=== PATIENT | male | born 1940 | race Caucasian/White ===

== ENCOUNTER → 2016-07-14 | Outpatient (CLI) | payer MEDICARE | END | disposition home or self-care (01) | LOC: PCVCIMAG 12:39 | PROVIDERS: ATTEND Internal Medicine Cardiovascular Disease | DX: I65.23 Occlusion and stenosis of bilateral carotid arteries (principal); I10 Essential (primary) hypertension; I25.10 Atherosclerotic heart disease of native coronary artery without angina pectoris; E78.00 Pure hypercholesterolemia, unspecified; Z95.5 Presence of coronary angioplasty implant and graft | CPT/HCPCS: 93325; 93351; 93880 ==

== ENCOUNTER → 2017-08-05 | Outpatient (CLI) | payer MEDICARE | END | disposition home or self-care (01) | LOC: PCVCIMAG 10:39 | DX: I25.10 Atherosclerotic heart disease of native coronary artery without angina pectoris (principal); I10 Essential (primary) hypertension; E78.00 Pure hypercholesterolemia, unspecified; I77.9 Disorder of arteries and arterioles, unspecified; I65.23 Occlusion and stenosis of bilateral carotid arteries; Z79.899 Other long term (current) drug therapy; Z79.82 Long term (current) use of aspirin | CPT/HCPCS: 80061; 93005; 93880; G0463 ==

== ENCOUNTER → 2017-12-20 | Outpatient (CLI) | payer MEDICARE ==
--- NOTE | 2017-12-20 13:50 | PCVCIMAG ---
APPROVED REPORT Study performed: 12/20/2017 12:58:02 Exam: Stress Echocardiogram Indication: CAD, Hypertension, hyperlipidemia Patient Location: Echo lab Stress Nurse: Alesia Mohr RN Status: routine Ht: 5 ft 10 in HR: 65 bpm BP: 130/80 mmHg Rhythm: NSR Medical History Medical History: CAD s/p stent Procedure The patient underwent an Exercise Stress Test using the Franky Protocol. Blood pressure, heart rate, and EKG were monitored. An Echocardiogram was performed by process control technician in four stages in quad fashion. At peak stress, four selected images were obtained and placed side by side with resting images for comparison. Stress Test Details Stress Test: Exercise stress testing was performed using a Franky protocol. HR Resting HR: 65 bpmMax Heart Rate (APMHR): 143 bpm Max HR Achieved: 129 bpmTarget HR (85% APMHR): 121 bpm % of APMHR: 90 HR response to stress: Normal HR response to stress BP Resting BP: 130/80 mmHg Max BP: 200/80 mmHg ECG Resting ECG: Sinus Rhythm Stress ECG: Sinus Rhythm Recovery ECG: Sinus Rhythm Clinical Reason for Termination: Maximal effort Exercise duration: 9 min 30 sec Highest Stage Achieved: Stage 4: 4.2 mph at 16% grade. Exercise capacity: 11.60 METs Overall Exercise Capacity for Age: Good Pre-Stress Echo The resting Echocardiogram showed normal left ventricular contractility with an estimated Ejection Fraction of about 55-60%. Normal wall motion in all segments on baseline images. Post-Stress Echo The stress Echocardiogram showed normal left ventricular contractility with an estimated Ejection Fraction of about 60-65%. Normal augmentation of wall motion in all segments on post stress images. Clinical No clinical or ECG evidence for ischemia. Conclusion Clinical Response: Non-ischemic Exercise Capacity: Average Stress ECG Response: Non-ischemic Stress Echo Images: Non-ischemic The left ventricle is normal in size and wall thickness in both the rest and stress images. Patient has cardiac clearance for knee surgery. Other Information Study Quality: Good <Conclusion> The left ventricle is normal in size and wall thickness in both the rest and stress images. Patient has cardiac clearance for knee surgery.
== END | disposition home or self-care (01) ==
LOC: PCVCIMAG 13:48
PROVIDERS: ATTEND Internal Medicine Cardiovascular Disease
DX: I25.10 Atherosclerotic heart disease of native coronary artery without angina pectoris (principal); I10 Essential (primary) hypertension
CPT/HCPCS: 93325; 93351

== ENCOUNTER → 2018-10-10 | Outpatient (CLI) | payer MEDICARE | END | disposition home or self-care (01) | LOC: PCVCCLINIC 13:00 | PROVIDERS: ATTEND Internal Medicine Cardiovascular Disease | DX: I25.10 Atherosclerotic heart disease of native coronary artery without angina pectoris (principal); I65.23 Occlusion and stenosis of bilateral carotid arteries; I73.9 Peripheral vascular disease, unspecified; E78.01 Familial hypercholesterolemia; I10 Essential (primary) hypertension; Z79.82 Long term (current) use of aspirin | CPT/HCPCS: 36415; 80061; 93005; G0463 ==

== ENCOUNTER → 2018-11-30 | Outpatient (CLI) | payer MEDICARE ==
--- NOTE | 2018-11-30 13:32 | PCVCIMAG ---
EXAM: BILATERAL CAROTID DUPLEX INDICATION: Carotid Occlusive Disease. Prior right carotid stent. FINDINGS: Doppler Measurements (centimeters per second): RIGHT: Peak CCA-74, Peak ECA-194, Diastolic ICA-17, Peak ICA-123, ICA/CCA Ratio-1.7. LEFT: Peak CCA-102, Peak ECA-177, Diastolic ICA-27, Peak ICA-167, ICA/CCA Ratio-1.6. RIGHT CAROTID: Good color flow throughout a prior stent in the upper common carotid and extending into the proximal internal carotid artery. The proximal internal carotid artery shows no significant stenosis. The common carotid artery shows no significant stenosis. The external carotid artery shows 60% stenosis. LEFT CAROTID: The carotid bulb has moderate plaque. The proximal internal carotid artery shows 50% stenosis. The common carotid artery shows no significant stenosis. The external carotid artery shows 50% stenosis. Antegrade flow in both vertebral arteries. IMPRESSION: Prior right carotid stent showing good patency. 50% stenosis of the left internal carotid artery with moderate plaque. No change since July 2017. LOC:[id number]
== END | disposition home or self-care (01) ==
LOC: PCVCIMAG 12:49
PROVIDERS: ATTEND Internal Medicine Cardiovascular Disease
DX: I65.22 Occlusion and stenosis of left carotid artery (principal); E78.01 Familial hypercholesterolemia
CPT/HCPCS: 93880